=== PATIENT | male | born 1970 | race Caucasian/White ===

== ENCOUNTER 2018-07-31 09:46 | Emergency (ER) | payer SELFPAY ==
[2018-07-31 10:05] VITALS: BP 133/79
[2018-07-31] MEDS ORDERED: KETOROLAC TROMETHAMINE 60 MG/2 ML VIAL IM ONE (10:29)
--- NOTE | 2018-07-31 10:37 | ED Physician Documentation ---
General Adult - HISTORIAN Historian: patient - HPI Stated Complaint: R Shoulder/Elbow pain Chief Complaint: General Adult Onset: days ago Timing: worse Further Comments: yes (48 year old male patient presents with complaint of right shoulder pain for the past 30 days and right elbow pain for the past 14 days. 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.) - ROS CONST: no problems EYES/ENT: none CVS/RESP: none GI/: none MS/SKIN/LYMPH: none NEURO/PSYCH: denies: headache, fainting, dizziness, tingling, numbness, difficulty walking, difficulty with speech, anxiety, depression, other - PAST HX Past History: none Allergies/Adverse Reactions: Allergies Allergy/AdvReac Type Severity Reaction Status Date / Time Sulfa (Sulfonamide Allergy Intermediate Itchy Skin Verified 07/31/18 10:04 Antibiotics) nalbuphine HCl [From Nubain] Allergy Mild Hives Verified 07/31/18 10:04 Home Medications: Ambulatory Orders Medication Instructions Recorded Alprazolam [Xanax Xr] 1 tab PO BID 07/31/18 predniSONE [Deltasone] 10 mg PO DAILY #14 tablet 07/31/18 - SOCIAL HX Smoking History: cigarettes - FAMILY HX Family History: No - VITAL SIGNS Vital Signs: Vital Signs Temp Pulse Resp BP Pulse Ox 89 15 133/79 97 07/31/18 09:50 07/31/18 09:50 07/31/18 09:50 07/31/18 09:50 - REVIEWED ASSESSMENTS Nursing Assessment Reviewed: Yes Vitals Reviewed: Yes ED Results Lab/Radiology - Orders Orders: ED Orders Category Date Time Status Ketorolac Tromethamine [Toradol] Med 07/31/18 10:29 Once 60 mg IM NOW ONE General Adult Physical Exam - PHYSICAL EXAM GENERAL APPEARANCE: [id number] N EENT: eye inspection normal, SAMUEL RESPIRATORY: no resp distress, chest non-tender, breath sounds normal CVS: reg rate & rhythm, heart sounds normal, equal pulses, no murmur, no gallop, PMI nml, no JVD, no friction rub, 24 ABDOMEN: soft, no organomegaly, normal bowel sounds, no abdominal bruit, no distension SKIN: normal color, warm/dry, NR, INT, PAL, DR EXTREMITIES: tenderness (right elbow - medial epicondyle; right shoulder with crepitus palpable, cannot fully extend over head. ) NEURO: oriented X3, motor nml, sensation nml, mood/affect nml Discharge Clincal Impression: Internal derangement of right shoulder Medial epicondylitis of elbow Qualifiers: Laterality: right Qualified Code(s): M77.01 - Medial epicondylitis, right elbow Prescriptions: predniSONE [Deltasone] 10 mg PO DAILY #14 tablet Referrals: Estuardo Acevedo MD [Primary Care Provider] - 2 Days Additional Instructions: Rest Alternate ice and moist heat academic support director your prescription and start them today. Follow up with your primary care doctor after completing the prednisone for further evaluation of your shoulder. You will likely need an MRI if the pain persists Condition: Stable Disposition: 01 HOME, SELF-CARE Decision to Admit: NO Decision Time: 10:38
== END 2018-07-31 10:48 | disposition home or self-care (01) ==
LOC: ED 09:46
DX: M24.811 Other specific joint derangements of right shoulder, not elsewhere classified (principal); M77.01 Medial epicondylitis, right elbow
CPT/HCPCS: 96372; 99283; J1885